=== PATIENT | female | born 1965 | race Hispanic/Latino ===

== ENCOUNTER → 2018-05-26 | Day surgery (SDC) | payer OTHER ==
[~2018-05-26] MED LIST: CEFTRIAXONE SOD 1 GM VIAL ONE; DEXAMETHASONE SOD PHOS INJ 4 MG/ML VIAL ONE; IOPAMIDOL 610MG/1ML 300 MG/ML VIAL IV ONE; LIDOCAINE HCL 2% LOCAL INJ 5 ML SDV VIAL INJ ONE; METFORMIN HCL850 MG PO; MIDAZOLAM HCL 2 MG/2 ML VIAL ONE; ONDANSETRON HCL INJ 2 MG/ML VIAL ONE; PANTOPRAZOLE SO40 MG PO; PROPOFOL IV EMULSION 10 MG/ML 20 ML VIAL ONE; RAMIPRIL10 MG; SEVOFLURANE INHAL SOLN 250 ML PEN BTL ONE; SUCRALFATE1 GM PO
--- OUTSIDE RECORDS SUMMARY | 2018-05-26 06:01 | XMS REPORT | Clinical Summary ---
Author Author [facility] Address Unknown Phone Unavailable Care Team Providers Care Sea Captain Name Role Phone Delma Pineda PCP Allergies Comments Active Allergy Reactions Severity Noted Date Headaches Amoxicillin 10/01/2016 Medications End Date Status Medication Sig Dispensed Refills Start Date Active dexlansoprazole 60 mg Take 60 mg by 0 capsule mouth daily. Active ramipril (ALTACE) 10 MG Take 10 mg by 0 capsule mouth daily. Active Problems Not on file Social History Date Tobacco Use Types Packs/Day Years Used Never Smoker Smokeless Tobacco: Never Used Alcohol Use Drinks/Week oz/Week Comments No Sex Assigned at Date Recorded Not on file Industry Job Start Date Occupation Not on file Not on file Not on file Travel End Travel History Travel Start No recent travel history available. Last Filed Vital Signs Not on file Plan of Treatment Not on file Results Not on fileafter 05/25/2017 Insurance Payer Benefit Subscriber ID Type Phone Address Plan / Group [employer] [employer] [employer]x [employer] NINA ballard (Home) [place] [address]
--- OUTSIDE RECORDS SUMMARY | 2018-05-26 06:01 | XMS REPORT ---
Author Author [facility] Address Unknown Phone Unavailable Care Team Providers Care Gameplay Engineer Name Role Phone Unavailable Unavailable Payers Payer Name Policy Type Policy Number Effective Date Expiration Date Problems This patient has no known problems. Allergies, Adverse Reactions, Alerts Allergy Name Allergy Type Status Severity Reaction(s) Onset Date Inactive Date Treating Clinician Comments No Known Allergies DA Active U 2018-04-18 00:00:00 shrimp DA Active ND 2016-09-22 00:00:00 Medications This patient has no known medications.
[2018-05-26 09:35] VITALS: BP 121/73
--- NOTE | 2018-05-28 01:24 | Operative Report ---
DATE OF PROCEDURE: May 26, 2018 PREOPERATIVE DIAGNOSES 1. Multiple chronic urinary tract infections. 2. Clinical signs and symptoms of interstitial cystitis. POSTOPERATIVE DIAGNOSES 1. Multiple chronic urinary tract infections. 2. Clinical signs and symptoms of interstitial cystitis. OPERATIONS PERFORMED 1. Cystourethroscopy with hydrodistention (entirely separate procedure for clinical signs and symptoms of interstitial cystitis without hematuria). 2. Cystourethroscopy with left ureter catheterization and left retrograde pyelogram (separate procedure for multiple chronic urinary tract infections). 3. Cystourethroscopy with right ureter catheterization and right retrograde pyelogram (separate procedure for multiple chronic urinary tract infections). 4. Supervision of fluoroscopy. 5. Interpretation of retrograde pyelography. ANESTHESIA: General. ESTIMATED BLOOD LOSS: Minimal. COMPLICATIONS: None. INDICATIONS: Mrs. Abdi is a 53-year-old female patient with history of multiple chronic urinary tract infections. She and I had a long discussion about alternatives, risks and benefits including doing nothing, cystoscopy, IVP, retrograde pyelograms, renal ultrasound, and hydrodistention. She voiced understanding of the options, alternatives, risks and benefits and she elected to proceed. PROCEDURE IN DETAIL: After informed consent was obtained, the patient was taken to the operative suite and placed supine on the operating table. She underwent general anesthesia, placed in the dorsal lithotomy position, and sterilely prepped and draped in the standard fashion for cystoscopy. Atrophy was noted. There was a grade II cystocele. Panendoscopy of the bladder revealed no tumors and no stones. Both ureteral orifices were in normal anatomic location and position. A hydrodistention was performed which revealed a capacity of 800 mL. No glomerulations and no Hunner's ulcers. Bilateral retrograde pyelograms were performed, which were normal. The bladder was drained. The patient was awakened from anesthesia and transported to the recovery room in excellent condition. SUPERVISION OF FLUOROSCOPY, INTERPRETATION OF RETROGRADE PYELOGRAPHY: I was present throughout the entire procedure and I supervised the use of fluoroscopy. There was no radiologist present. Attention was turned toward the left and right ureteral orifices, which were catheterized with an 8-[place] cone-tipped catheter in a retrograde fashion. Contrast was injected revealing delicate ureters, delicate pelvicaliceal systems, no evidence of filling defects and no evidence of hydronephrosis. IMPRESSION: Normal retrograde pyelograms. Job#: [id number]
== END | disposition home or self-care (01) ==
LOC: OR 05:58
PROVIDERS: ATTEND Urology
DX: N39.0 Urinary tract infection, site not specified (principal); N81.10 Cystocele, unspecified; R35.1 Nocturia; N39.46 Mixed incontinence; N28.1 Cyst of kidney, acquired; I10 Essential (primary) hypertension; K21.9 Gastro-esophageal reflux disease without esophagitis; R00.1 Bradycardia, unspecified; Z01.810 Encounter for preprocedural cardiovascular examination; Z79.84 Long term (current) use of oral hypoglycemic drugs
CPT/HCPCS: 36415; 52005; 74420; 81025; 82948; 93005; C1758; J0696; J1100; J2001; J2250; J2405; J2704; Q9967